=== PATIENT | female | born 1960 | race Caucasian/White ===

== ENCOUNTER 2018-09-15 16:42 | Emergency (ER) | payer BC, MEDICARE ==
[~2018-09-15] VITALS: Ht 162.6 cm; Wt 97.2 kg
[2018-09-15] MEDS ORDERED: BACL10TA2 (16:52)
[2018-09-15] MEDS ORDERED: TORS10TA3 (16:52)
[2018-09-15] MEDS ORDERED: CITA10TA5 (16:52)
[2018-09-15] MEDS ORDERED: NYST1POW9 (16:52)
[2018-09-15] MEDS ORDERED: ROPI2TAB24 (16:52)
[2018-09-15] MEDS ORDERED: LEVO100T5 (16:52)
[2018-09-15] MEDS ORDERED: VALS1TAB67 (16:52)
[2018-09-15] MEDS ORDERED: GABA-1171 (16:52)
[2018-09-15 18:51] LABS: BASO # 0.1 10^3/uL (0.0-0.2); BASO % 0.6 % (0.0-1.0); EOS # 0.5 10^3/uL (0.0-0.50); EOS % 5.8 % (0.0-3.0); HEMATOCRIT 38.2 % (36.0-47.0); HEMOGLOBIN 12.4 g/dl (12.0-15.5); MEAN CORPUSCULAR HEMOGLOBIN 30.5 pg (27.0-33.0); MEAN CORPUSCULAR HGB CONC 32.5 g/dl (32.0-36.5); MEAN CORPUSCULAR VOLUME 93.9 fl (80.0-96.0); MONO # 0.6 10^3/uL (0.0-0.8); MONO % 6.3 % (0.0-5.0); NEUTROPHILS # 5.5 10^3/uL (1.8-7.7); NEUTROPHILS % 63.7 % (36.0-66.0); PLATELET COUNT, AUTOMATED 236 10^3/uL (150-450); RED BLOOD COUNT 4.07 10^6/uL (4.00-5.40); WHITE BLOOD COUNT 8.7 10^3/uL (4.0-10.0)
[2018-09-15 19:09] LABS: INR 0.96; PROTHROMBIN TIME 12.9 SECONDS (12.1-14.4)
[2018-09-15 19:10] LABS: PARTIAL THROMBOPLASTIN TIME 34.6 SECONDS (25.4-37.6)
[2018-09-15 19:18] LABS: ALBUMIN 3.6 GM/DL (3.2-5.2); ALT/SGPT 28 U/L (12-78); BILIRUBIN,DIRECT < 0.1 MG/DL (0.0-0.2); BILIRUBIN,TOTAL 0.2 MG/DL (0.2-1.0); BLOOD UREA NITROGEN 17 MG/DL (7-18); C REACTIVE PROTEIN QUANTITATIV 0.74 MG/DL (0.00-0.30); CALCIUM LEVEL 8.9 MG/DL (8.5-10.1); CARBON DIOXIDE LEVEL 28 MEQ/L (21-32); CHLORIDE LEVEL 109 MEQ/L (98-107); CREATININE FOR GFR 1.12 MG/DL (0.55-1.30); FREE T4 1.51 NG/DL (0.76-1.46); GLUCOSE, FASTING 91 MG/DL (70-100); SODIUM LEVEL 143 MEQ/L (136-145); THYROID STIMULATING HORMONE 0.047 uIU/ML (0.358-3.740); TOTAL PROTEIN 6.8 GM/DL (6.4-8.2)
[2018-09-15 19:26] LABS: ERYTHROCYTE SEDIMENTATION RATE 39 mm/hr (0-30)
[2018-09-15 19:36] LABS: HEMOGLOBIN A1c 6.2 %
[2018-09-15 21:44] VITALS: BP 133/67
[2018-09-16 10:13] LABS: THYROID PEROXIDASE ANTIBODY 172.7 U/ML (<60.0)
[2018-09-16 10:15] LABS: THYROGLOBULIN ANTIBODY < 15.0 U/ML (<60.0)
== END 2018-09-15 21:51 | disposition home or self-care (01) ==
LOC: M ED 16:42
DX: L50.9 Urticaria, unspecified (principal); R60.0 Localized edema; I10 Essential (primary) hypertension; E78.5 Hyperlipidemia, unspecified; G35 Multiple sclerosis; E03.9 Hypothyroidism, unspecified; Z79.899 Other long term (current) drug therapy; Z88.0 Allergy status to penicillin; Z88.2 Allergy status to sulfonamides; Z88.5 Allergy status to narcotic agent; Z88.1 Allergy status to other antibiotic agents

== ENCOUNTER 2021-03-27 09:34 | Inpatient (IN) | payer MEDICARE ==
[~2021-03-27] VITALS: Ht 162.6 cm; Wt 88.0 kg
[~2021-03-27 09:34] MED LIST: BACL10TA2 PO; CITA10TA7; GABA-1171 PO; LEVO100T5; NYST1POW9 TOP; ROPI2TAB24 PO; TORS10TA3; VALS1TAB67 PO
[2021-03-27] MEDS ORDERED: PROBCAP14 PO (18:57)
[2021-03-27] MEDS ORDERED: LEVO125T4 PO (18:57)
[2021-03-27] MEDS ORDERED: HYDR-643 PO (18:57)
[2021-03-27] MEDS ORDERED: FURO40TA2 PO (18:57)
[2021-03-27] MEDS ORDERED: MELA5CAP2 PO (18:57)
[2021-03-27] MEDS ORDERED: TESS100C PO (19:00)
[2021-05-07 10:11] VITALS: BP 124/62
[2021-05-09] MEDS ORDERED: LEVO750T13 PO (09:55)
[2021-05-09] MEDS ORDERED: PANT40TA29 PO (09:55)
[2021-05-09] MEDS ORDERED: PRED10TA2 PO (09:55)
[2021-05-09] MEDS ORDERED: LEXA1TAB PO (09:55)
[2021-05-09] MEDS ORDERED: MUCI600T31 PO (09:55)
[2021-05-09] MEDS ORDERED: BUSP5TA PO (09:55)
[2021-05-11 21:35] VITALS: O2SAT 94
[2021-05-12 05:32] VITALS: BP 119/67
[2021-05-12] MEDS ORDERED: LEVO750T13 PO (15:06)
[2021-05-12] MEDS ORDERED: BUSP5TA PO (15:06)
[2021-05-12] MEDS ORDERED: MUCI600T31 PO (15:06)
[2021-05-12] MEDS ORDERED: PANT-23 PO (15:06)
[2021-05-12] MEDS ORDERED: BENZ-18 PO (15:06)
[2021-05-12] MEDS ORDERED: PRED10TA2 PO (15:06)
[2021-05-12] MEDS ORDERED: LEXA1TAB PO (15:06)
== END 2021-05-12 12:04 | DRG 177 ==
LOC: M 4MAIN 15:25 → M ICU 17:25 → M 4MAIN 04-15 18:22 → M MSPAV 04-30 22:28
PROVIDERS: ADMIT Internal Medicine; ATTEND Internal Medicine
PROC: XW033E5 Introduction of Remdesivir Anti-infective into Peripheral Vein, Percutaneous Approach, New Technology Group 5 (ICD-10-PCS; principal; 2021-03-27)
PROC: 3E0333Z Introduction of Anti-inflammatory into Peripheral Vein, Percutaneous Approach (ICD-10-PCS; 2021-03-27)
PROC: 02HV33Z Insertion of Infusion Device into Superior Vena Cava, Percutaneous Approach (ICD-10-PCS; 2021-04-07)
PROC: 30233N1 Transfusion of Nonautologous Red Blood Cells into Peripheral Vein, Percutaneous Approach (ICD-10-PCS; 2021-04-23)
DX: U07.1 COVID-19 (principal); J12.82 Pneumonia due to coronavirus disease 2019; J96.01 Acute respiratory failure with hypoxia; E87.1 Hypo-osmolality and hyponatremia; D64.9 Anemia, unspecified; I10 Essential (primary) hypertension; G35 Multiple sclerosis; G25.81 Restless legs syndrome; E03.9 Hypothyroidism, unspecified; J45.909 Unspecified asthma, uncomplicated; L40.9 Psoriasis, unspecified; G62.9 Polyneuropathy, unspecified; M54.9 Dorsalgia, unspecified; F32.A Depression, unspecified; R11.0 Nausea; R19.7 Diarrhea, unspecified; F41.9 Anxiety disorder, unspecified; E87.6 Hypokalemia; D69.6 Thrombocytopenia, unspecified; R73.9 Hyperglycemia, unspecified; Z87.891 Personal history of nicotine dependence; Z88.0 Allergy status to penicillin; Z79.899 Other long term (current) drug therapy; Z88.1 Allergy status to other antibiotic agents; Z88.2 Allergy status to sulfonamides; Z91.018 Allergy to other foods; Z88.8 Allergy status to other drugs, medicaments and biological substances; Z88.5 Allergy status to narcotic agent

== ENCOUNTER 2021-05-12 13:42 | Inpatient (IN) | payer MEDICARE ==
[~2021-05-12] VITALS: Ht 165.1 cm; Wt 95.6 kg
[~2021-05-12 13:42] MED LIST changes: +BUSP5TA PO; +FURO40TA2 PO; +HYDR-643 PO; +LEVO125T4 PO; +LEVO750T13 PO; +LEXA1TAB PO; +MELA5CAP2 PO; +MUCI600T31 PO; +PANT40TA29 PO; +PRED10TA2 PO; +PROBCAP14 PO; +TESS100C PO
[2021-05-12 14:22] LABS: ABG BASE EXCESS 4.9 (-2.0-2.0); ABG HCO3 29.3 MEQ/L (22.0-26.0); ABG O2 SATURATION 98.3 % (95.0-99.0); ABG PARTIAL PRESSURE O2 131.4 mmHg (75.0-100.0); ABG STANDARD HCO3 28.9 MEQ/L (22.0-26.0); ABG TOTAL CO2 30.7 MEQ/L (23.0-31.0); ABG pH (ARTERIAL) 7.452 UNITS (7.350-7.450)
[2021-05-12] MEDS ORDERED: MOM 30ML SUSPENSION UDC PO PRN (14:25)
[2021-05-12] MEDS ORDERED: ACETAMINOPHEN TAB 650MG DOSE (2X325MG) PO PRN (14:25)
[2021-05-12] MEDS ORDERED: MAALOX 30 ML SUSP *UDC PO PRN (14:25)
[2021-05-12] MEDS ORDERED: PRED10TA2 PO (15:06)
[2021-05-12] MEDS ORDERED: PANT-23 PO (15:06)
[2021-05-12] MEDS ORDERED: LEVO750T13 PO (15:06)
[2021-05-12] MEDS ORDERED: BENZ-18 PO (15:06)
[2021-05-12] MEDS ORDERED: MUCI600T31 PO (15:06)
[2021-05-12] MEDS ORDERED: LEXA1TAB PO (15:06)
[2021-05-12] MEDS ORDERED: BUSP5TA PO (15:06)
[2021-05-12] MEDS ORDERED: HOME MED LIST COMPLETE! XX SCH (15:10)
[2021-05-12] MEDS ORDERED: BENZONATATE 100MG CAPSULE PO PRN (15:25)
[2021-05-12] MEDS ORDERED: NYSTATIN 100,000 UNITS/GM TOPICAL PWD 15 GM TOP PRN (15:25)
[2021-05-12] MEDS ORDERED: ISOVUE-370 76% 100ML VIAL As Ordered ONE (15:28)
[2021-05-12 15:55] LABS: HEMATOCRIT 31.5 % (36.0-47.0); HEMOGLOBIN 10.3 g/dl (12.0-15.5); MEAN CORPUSCULAR HEMOGLOBIN 30.4 pg (27.0-33.0); MEAN CORPUSCULAR HGB CONC 32.7 g/dl (32.0-36.5); MEAN CORPUSCULAR VOLUME 92.9 fl (80.0-96.0); PLATELET COUNT, AUTOMATED 113 10^3/uL (150-450); RED BLOOD COUNT 3.39 10^6/uL (4.00-5.40); WHITE BLOOD COUNT 6.8 10^3/uL (4.0-10.0)
[2021-05-12 16:06] LABS: INR 0.99; PROTHROMBIN TIME 13.5 SECONDS (12.7-14.5)
[2021-05-12 16:07] LABS: PARTIAL THROMBOPLASTIN TIME 36.6 SECONDS (25.9-37.0)
[2021-05-12] MEDS ORDERED: ALBUTEROL SULFATE 2.5 MG/0.5 ML INH NEB SOLN INH PRN (16:35)
[2021-05-12 16:53] LABS: ALBUMIN 2.6 GM/DL (3.2-5.2); ALT/SGPT 53 U/L (12-78); BILIRUBIN,TOTAL 0.5 MG/DL (0.2-1.0); BLOOD UREA NITROGEN 17 MG/DL (7-18); C REACTIVE PROTEIN QUANTITATIV 3.76 MG/DL (0.00-0.30); CALCIUM LEVEL 8.4 MG/DL (8.8-10.2); CARBON DIOXIDE LEVEL 27 MEQ/L (21-32); CHLORIDE LEVEL 108 MEQ/L (98-107); FERRITIN 478 NG/ML (8-252); GLOMERULAR FILTRATION RATE > 60.0 (>45); GLUCOSE, FASTING 120 MG/DL (70-100); LDH LACTATE DEHYDROGENASE 350 U/L (84-246); MAGNESIUM LEVEL 2.2 MG/DL (1.8-2.4); POTASSIUM SERUM 4.1 MEQ/L (3.5-5.1); SODIUM LEVEL 143 MEQ/L (136-145); TOTAL PROTEIN 5.4 GM/DL (6.4-8.2)
[2021-05-12 17:15] LABS: ATYPICAL LYMPH 4 % (0-5); BASOPHILS 1 % (0-1); EOSINOPHILS 1 % (0-3); LYMPHOCYTES 11 % (16-44); METAMYELOCYTES 1 % (0-0); MONOCYTES 2 % (0-5); NEUTROPHILS 60 % (28-66); PLATELET ESTIMATE DECREASED (NORMAL)
[2021-05-12 17:16] LABS: ANISOCYTOSIS 1+
[2021-05-12] MEDS: ENOXAPARIN 100MG/1ML SYRINGE (J1650 PER 10MG) SC SCH (18:28)
[2021-05-12] MEDS: LACTOBACILLUS ACIDOPHILUS CAP (BACID) PO SCH (18:28)
[2021-05-12 20:00] VITALS: BP 135/70
[2021-05-12] MEDS: busPIRone 5 MG TAB PO SCH (20:14)
[2021-05-12] MEDS: BACLOFEN 10 MG TAB PO SCH (20:14)
[2021-05-12] MEDS: guaiFENesin ER 600 MG TAB PO SCH (20:14)
[2021-05-12] MEDS: GABAPENTIN 100 MG CAP PO SCH (20:14)
[2021-05-12] MEDS: rOPINIRole 1MG TAB PO SCH (20:14)
[2021-05-12] MEDS: DOCUSATE SODIUM 100MG CAPSULE PO SCH (20:14)
[2021-05-12] MEDS: hydrOXYzine 10 MG TAB PO PRN (20:17)
[2021-05-13] VITALS (9 sets, daily range): BP systolic 123–136; BP diastolic 59–71; O2SAT 98–99
[2021-05-13] MEDS: LEVOTHYROXINE 125MCG TABLET (0.125MG) PO SCH (05:47)
[2021-05-13] MEDS: ENOXAPARIN 100MG/1ML SYRINGE (J1650 PER 10MG) SC SCH ×2 (05:48→18:17)
[2021-05-13] MEDS ORDERED: LevoFLOXacin 750 MG TABLET PO SCH (06:00)
[2021-05-13 06:07] LABS: HEMATOCRIT 33.8 % (36.0-47.0); HEMOGLOBIN 10.6 g/dl (12.0-15.5); MEAN CORPUSCULAR HEMOGLOBIN 30.2 pg (27.0-33.0); MEAN CORPUSCULAR HGB CONC 31.4 g/dl (32.0-36.5); MEAN CORPUSCULAR VOLUME 96.3 fl (80.0-96.0); PLATELET COUNT, AUTOMATED 110 10^3/uL (150-450); RED BLOOD COUNT 3.51 10^6/uL (4.00-5.40); WHITE BLOOD COUNT 5.9 10^3/uL (4.0-10.0)
[2021-05-13 06:32] LABS: BLOOD UREA NITROGEN 18 MG/DL (7-18); CALCIUM LEVEL 8.9 MG/DL (8.8-10.2); CARBON DIOXIDE LEVEL 29 MEQ/L (21-32); CHLORIDE LEVEL 107 MEQ/L (98-107); CREATININE FOR GFR 0.34 MG/DL (0.55-1.30); GLOMERULAR FILTRATION RATE > 60.0 (>45); GLUCOSE, FASTING 74 MG/DL (70-100); MAGNESIUM LEVEL 2.5 MG/DL (1.8-2.4); POTASSIUM SERUM 3.3 MEQ/L (3.5-5.1); SODIUM LEVEL 145 MEQ/L (136-145)
[2021-05-13 06:41] LABS: ATYPICAL LYMPH 3 % (0-5); LYMPHOCYTES 20 % (16-44); METAMYELOCYTES 3 % (0-0); MONOCYTES 2 % (0-5); MYELOCYTES 1 % (0-0); NEUTROPHILS 69 % (28-66)
[2021-05-13 06:42] LABS: PLATELET ESTIMATE DECREASED (NORMAL)
[2021-05-13 06:43] LABS: ANISOCYTOSIS 1+
[2021-05-13] MEDS: LACTOBACILLUS ACIDOPHILUS CAP (BACID) PO SCH ×2 (08:48→18:17)
[2021-05-13] MEDS: PANTOPRAZOLE 40MG TAB (PROTONIX) PO SCH (08:48)
[2021-05-13] MEDS: DOCUSATE SODIUM 100MG CAPSULE PO SCH ×2 (08:48→20:13)
[2021-05-13] MEDS: BACLOFEN 10 MG TAB PO SCH ×2 (08:48→20:12)
[2021-05-13] MEDS: predniSONE 20 MG TAB PO SCH (08:49)
[2021-05-13] MEDS: ESCITALOPRAM OXALATE 10 MG TAB (LEXAPRO) PO SCH (08:49)
[2021-05-13] MEDS: guaiFENesin ER 600 MG TAB PO SCH ×2 (08:49→20:13)
[2021-05-13] MEDS: busPIRone 5 MG TAB PO SCH ×2 (08:49→20:13)
[2021-05-13] MEDS: GABAPENTIN 100 MG CAP PO SCH ×2 (08:49→20:13)
[2021-05-13] MEDS ORDERED: ENOXAPARIN 40MG/0.4ML SYRINGE (J1650 PER 10MG) SC SCH (09:00)
[2021-05-13] MEDS ORDERED: POTASSIUM CHLORIDE 10MEQ SR TABLET PO ONE (12:00)
[2021-05-13 13:51] LABS: ABG BASE EXCESS 3.3 (-2.0-2.0); ABG HCO3 27.6 MEQ/L (22.0-26.0); ABG O2 SATURATION 90.3 % (95.0-99.0); ABG STANDARD HCO3 27.3 MEQ/L (22.0-26.0); ABG TOTAL CO2 28.9 MEQ/L (23.0-31.0); ABG pH (ARTERIAL) 7.446 UNITS (7.350-7.450)
[2021-05-13] MEDS ORDERED: LIDOCAINE 1% MDV 20ML VIAL As Ordered ONE (14:07)
[2021-05-13] MEDS ORDERED: SODIUM CHLORIDE 0.9% INJ 10 ML SYR IV PRN (17:00)
[2021-05-13] MEDS: SODIUM CHLORIDE 0.9% INJ 10 ML SYR IV SCH (18:17)
[2021-05-13] MEDS: hydrOXYzine 10 MG TAB PO PRN (18:46)
[2021-05-13] MEDS: rOPINIRole 1MG TAB PO SCH (20:12)
[2021-05-14] VITALS: BP 111/65
[2021-05-14 04:00] VITALS: BP 132/65
[2021-05-14] MEDS: hydrOXYzine 10 MG TAB PO PRN ×2 (04:14→21:42)
[2021-05-14] MEDS: SODIUM CHLORIDE 0.9% INJ 10 ML SYR IV SCH ×2 (05:12→17:42)
[2021-05-14] MEDS: ENOXAPARIN 100MG/1ML SYRINGE (J1650 PER 10MG) SC SCH ×2 (05:13→17:42)
[2021-05-14] MEDS: LEVOTHYROXINE 125MCG TABLET (0.125MG) PO SCH (05:13)
[2021-05-14 05:29] LABS: HEMATOCRIT 28.5 % (36.0-47.0); HEMOGLOBIN 9.1 g/dl (12.0-15.5); MEAN CORPUSCULAR HEMOGLOBIN 30.4 pg (27.0-33.0); MEAN CORPUSCULAR HGB CONC 31.9 g/dl (32.0-36.5); MEAN CORPUSCULAR VOLUME 95.3 fl (80.0-96.0); PLATELET COUNT, AUTOMATED 104 10^3/uL (150-450); RED BLOOD COUNT 2.99 10^6/uL (4.00-5.40); WHITE BLOOD COUNT 5.8 10^3/uL (4.0-10.0)
[2021-05-14 05:49] LABS: BLOOD UREA NITROGEN 17 MG/DL (7-18); CALCIUM LEVEL 8.7 MG/DL (8.8-10.2); CARBON DIOXIDE LEVEL 29 MEQ/L (21-32); CHLORIDE LEVEL 107 MEQ/L (98-107); CREATININE FOR GFR 0.25 MG/DL (0.55-1.30); GLOMERULAR FILTRATION RATE > 60.0 (>45); GLUCOSE, FASTING 58 MG/DL (70-100); MAGNESIUM LEVEL 2.2 MG/DL (1.8-2.4); POTASSIUM SERUM 3.9 MEQ/L (3.5-5.1); SODIUM LEVEL 141 MEQ/L (136-145)
[2021-05-14 05:54] LABS: ANISOCYTOSIS 1+; EOSINOPHILS 1 % (0-3); LYMPHOCYTES 24 % (16-44); METAMYELOCYTES 1 % (0-0); MONOCYTES 3 % (0-5); NEUTROPHILS 71 % (28-66); PLATELET ESTIMATE DECREASED (NORMAL)
[2021-05-14 08:14] VITALS: BP 108/55
[2021-05-14] MEDS: BACLOFEN 10 MG TAB PO SCH ×2 (09:04→21:42)
[2021-05-14] MEDS: LACTOBACILLUS ACIDOPHILUS CAP (BACID) PO SCH ×2 (09:04→17:42)
[2021-05-14] MEDS: busPIRone 5 MG TAB PO SCH ×2 (09:04→21:42)
[2021-05-14] MEDS: PANTOPRAZOLE 40MG TAB (PROTONIX) PO SCH (09:04)
[2021-05-14] MEDS: GABAPENTIN 100 MG CAP PO SCH ×2 (09:04→21:42)
[2021-05-14] MEDS: guaiFENesin ER 600 MG TAB PO SCH ×2 (09:05→21:42)
[2021-05-14] MEDS: DOCUSATE SODIUM 100MG CAPSULE PO SCH ×2 (09:05→21:42)
[2021-05-14] MEDS: ESCITALOPRAM OXALATE 10 MG TAB (LEXAPRO) PO SCH (09:05)
[2021-05-14] MEDS: predniSONE 20 MG TAB PO SCH (09:05)
[2021-05-14 12:00] VITALS: BP 125/60
[2021-05-14] MEDS: MIRALAX *UNIT DOSE* 17GM PACKET PO SCH ×2 (12:36→21:42)
[2021-05-14 16:11] VITALS: BP 118/61
[2021-05-14 21:00] VITALS: BP 116/70
[2021-05-14] MEDS: rOPINIRole 1MG TAB PO SCH (21:42)
[2021-05-15] VITALS: BP 136/92
[2021-05-15 04:00] VITALS: BP 116/58
[2021-05-15] MEDS: LEVOTHYROXINE 125MCG TABLET (0.125MG) PO SCH (05:54)
[2021-05-15] MEDS: ENOXAPARIN 100MG/1ML SYRINGE (J1650 PER 10MG) SC SCH (05:54)
[2021-05-15] MEDS: SODIUM CHLORIDE 0.9% INJ 10 ML SYR IV SCH (05:55)
[2021-05-15 06:25] LABS: HEMATOCRIT 29.1 % (36.0-47.0); MEAN CORPUSCULAR HEMOGLOBIN 29.9 pg (27.0-33.0); MEAN CORPUSCULAR HGB CONC 30.9 g/dl (32.0-36.5); MEAN CORPUSCULAR VOLUME 96.7 fl (80.0-96.0); PLATELET COUNT, AUTOMATED 106 10^3/uL (150-450); RED BLOOD COUNT 3.01 10^6/uL (4.00-5.40); WHITE BLOOD COUNT 6.4 10^3/uL (4.0-10.0)
[2021-05-15 06:46] LABS: BLOOD UREA NITROGEN 17 MG/DL (7-18); CALCIUM LEVEL 8.8 MG/DL (8.8-10.2); CARBON DIOXIDE LEVEL 31 MEQ/L (21-32); CHLORIDE LEVEL 105 MEQ/L (98-107); CREATININE FOR GFR 0.27 MG/DL (0.55-1.30); GLOMERULAR FILTRATION RATE > 60.0 (>45); GLUCOSE, FASTING 80 MG/DL (70-100); POTASSIUM SERUM 3.6 MEQ/L (3.5-5.1); SODIUM LEVEL 142 MEQ/L (136-145)
[2021-05-15 07:11] LABS: ANISOCYTOSIS 2+; EOSINOPHILS 1 % (0-3); LYMPHOCYTES 16 % (16-44); MONOCYTES 4 % (0-5); NEUTROPHILS 78 % (28-66); PLATELET ESTIMATE DECREASED (NORMAL)
[2021-05-15 08:00] VITALS: BP 120/63
[2021-05-15] MEDS: guaiFENesin ER 600 MG TAB PO SCH (08:50)
[2021-05-15] MEDS: GABAPENTIN 100 MG CAP PO SCH (08:50)
[2021-05-15] MEDS: MIRALAX *UNIT DOSE* 17GM PACKET PO SCH (08:50)
[2021-05-15] MEDS: LACTOBACILLUS ACIDOPHILUS CAP (BACID) PO SCH (08:51)
[2021-05-15] MEDS: PANTOPRAZOLE 40MG TAB (PROTONIX) PO SCH (08:51)
[2021-05-15] MEDS: BACLOFEN 10 MG TAB PO SCH (08:51)
[2021-05-15] MEDS: ESCITALOPRAM OXALATE 10 MG TAB (LEXAPRO) PO SCH (08:51)
[2021-05-15] MEDS: busPIRone 5 MG TAB PO SCH (08:51)
[2021-05-15] MEDS: DOCUSATE SODIUM 100MG CAPSULE PO SCH (08:51)
[2021-05-15] MEDS: predniSONE 20 MG TAB PO SCH (08:51)
[2021-05-15] MEDS ORDERED: MORPHINE 2 MG/ML 1ML VIAL (J2270) IV ONE ×2 (11:05→11:30)
[2021-05-15] MEDS ORDERED: MORPHINE 2 MG/ML 1ML VIAL (J2270) As Ordered ONE ×2 (11:07→11:40)
[2021-05-15] MEDS ORDERED: LORazepam 2 MG/ML VIAL IV STA ×2 (11:14→11:29)
[2021-05-15 11:32] LABS: CK-MB VALUE MASS 6.8 NG/ML (<3.6); MB/CK RELATIVE INDEX 19.43 (< OR =4)
[2021-05-15 11:37] LABS: ABG HCO3 23.9 MEQ/L (22.0-26.0); ABG O2 SATURATION 83.3 % (95.0-99.0); ABG PARTIAL PRESSURE CO2 45.3 mmHg (35.0-45.0); ABG PARTIAL PRESSURE O2 51.5 mmHg (75.0-100.0); ABG STANDARD HCO3 22.6 MEQ/L (22.0-26.0); ABG TOTAL CO2 25.3 MEQ/L (23.0-31.0)
[2021-05-15] MEDS ORDERED: methylPREDNISolone 125MG 2ML VIAL IV SCH (12:00)
[2021-05-15] MEDS ORDERED: SCOPOLAMINE 1MG TRANSDERMAL PATCH TOP PRN (12:20)
[2021-05-15] MEDS ORDERED: LORazepam 2 MG/ML VIAL IV PRN (12:20)
[2021-05-15] MEDS ORDERED: MORPHINE 2 MG/ML 1ML VIAL (J2270) IV PRN (12:20)
[2021-05-15] MEDS ORDERED: ONDANSETRON 4MG/2ML VIAL IV PRN (13:45)
[2021-05-15 15:39] LABS: MAGNESIUM LEVEL 2.1 MG/DL (1.7-2.2)
== END 2021-05-15 16:20 | disposition expired | DRG 175 ==
LOC: M ED 13:42 → M ED INP 14:22 → ENRESERV 15:00 → M PCU 17:40
PROVIDERS: ADMIT Internal Medicine; ATTEND Internal Medicine
PROC: 02HV33Z Insertion of Infusion Device into Superior Vena Cava, Percutaneous Approach (ICD-10-PCS; principal; 2021-05-13 12:00)
DX: I26.94 Multiple subsegmental thrombotic pulmonary emboli without acute cor pulmonale (principal); I21.4 Non-ST elevation (NSTEMI) myocardial infarction; J96.21 Acute and chronic respiratory failure with hypoxia; G93.40 Encephalopathy, unspecified; D68.8 Other specified coagulation defects; J84.10 Pulmonary fibrosis, unspecified; I10 Essential (primary) hypertension; G35 Multiple sclerosis; J45.909 Unspecified asthma, uncomplicated; E03.9 Hypothyroidism, unspecified; G25.81 Restless legs syndrome; Z51.5 Encounter for palliative care; Z66 Do not resuscitate; F32.A Depression, unspecified; F41.9 Anxiety disorder, unspecified; Z91.018 Allergy to other foods; L40.9 Psoriasis, unspecified; I46.9 Cardiac arrest, cause unspecified; D64.9 Anemia, unspecified; D69.6 Thrombocytopenia, unspecified; R33.9 Retention of urine, unspecified; U09.9 Post COVID-19 condition, unspecified; G62.9 Polyneuropathy, unspecified; K21.9 Gastro-esophageal reflux disease without esophagitis; Z79.899 Other long term (current) drug therapy; Z88.0 Allergy status to penicillin; Z88.1 Allergy status to other antibiotic agents; Z88.2 Allergy status to sulfonamides; Z88.5 Allergy status to narcotic agent; Z88.8 Allergy status to other drugs, medicaments and biological substances; Z91.012 Allergy to eggs; M54.9 Dorsalgia, unspecified